=== PATIENT | male | born 1950 | race Caucasian/White ===

== ENCOUNTER 2021-08-21 19:46 | Inpatient (IN) | payer OTHER, MEDICARE ==
[~2021-08-21] VITALS: Ht 160 cm; Wt 70.3 kg
--- NOTE | ~2021-08-21 | OP ---
[address] [address] OPERATIVE REPORT Name: FRANCISCO MONTILLA Room: [address] IN .R.#: [id number] Admission: 08/21/21 Attend Phys: Jamal Sevilla DO Discharge: Date of : 54 Report #: [id number] THIS REPORT FOR: cc: Brandon Kee MD, Rene P. MD Kramer, Adam P. DO ~ cc: Brandon Kee MD, Patient's chart DATE OF SURGERY: 08/22/2021 REFERRING PHYSICIAN: Brandon Kee MD. PREOPERATIVE DIAGNOSIS: Incarcerated ventral hernia. POSTOPERATIVE DIAGNOSES: Incarcerated ventral hernia plus intra-abdominal adhesions. PROCEDURE: Exploratory laparotomy with lysis of adhesions, repair of incarcerated ventral hernia with 11.4 x 11.[address] mesh. SURGEON: Jamal Sevilla DO. EMBOSSING TOOLSETTER: Butch Prieto DO, PGY-1, resident. SECOND FLORAL CLERK: Student, Dr. Les Puentes MS4. THIRD FLORAL CLERK: Student, Dr. Monet Sotelo MS3. ANESTHESIA: General endotracheal. ESTIMATED BLOOD LOSS: Less than 100 mL. COMPLICATIONS: None. DESCRIPTION OF PROCEDURE: After obtaining proper consents and discussing risks and complications with the patient, he was taken to the operating room, laid in the supine position and administered general endotracheal anesthetic. He was then prepped and draped in the usual sterile fashion. A timeout was performed. We confirmed the appropriate patient and procedure. Preoperative antibiotics had been given. SCDs were in place. We then made a small midline incision around the palpable hernia. This was carried cautiously into the subcutaneous tissue using electrocautery as well as blunt dissection with Metzenbaum scissors. Immediately when we encountered the hernia sac, there was noted to be inflammatory fluid around it. I was easily able to dissect around the hernia sac with my hand. There was a small amount of bleeding, but most of this area was very easily freed up because of the inflammation [place] [address] OPERATIVE REPORT Name: FRANCISCO MONTILLA Room: [address] IN .R.#: [id number] Admission: 08/21/21 Attend Phys: Jamal Sevilla DO Discharge: Date of : 54 Report #: [id number] hernia sac was identified, we then grasped and elevated a portion of the sac with hemostats. The hernia sac was then opened using Metzenbaum scissors cautiously. There was a large amount of fluid that came out of the wound. At this time, there was clear fluid. We did immediately identify some small bowel underneath this. I then placed my finger to protect the bowel and opened the hernia sac further all the way down to the hernia defect. The hernia defect was quite small and could not get my finger through this; however, I was able to get a portion of my finger underneath the hernia sac to open it and make a relaxing incision in the fascia. I then extended this fascial opening for the entire length of our incision. I was then able to bring up the small bowel, which was adhesed to the peritoneum. We did grasp and elevate the hernia defect and the fascia and peritoneum and then dissected the small bowel away from this. Once the bowel was free of the abdominal wall, I was then able to bring more of the bowel up into the view and then identified that there were numerous adhesions of the small bowel. I spent approximately an hour dissecting the small bowel adhesions using blunt dissection with my finger as well as blunt and sharp dissection with Metzenbaum scissors. Once the entire small bowel was freed, I placed it back into the peritoneal cavity. We then measured the entire length of the opening. We did identify some other small hernias related to the patient's previous midline incision. The entire length was approximately 6 cm including all 3 of the hernias, which we could identify, so I elected to use an 11.4 cm [address] traverse [address]rio ST mesh. This mesh was then inserted. It was sutured in place and 12 positions using a 0 Prolene suture in a U-fashion going down through the fascia into the mesh and back up through the fascia. Once this was all secured in place, I then tied all of the sutures. We then also ran a 0 Prolene suture over top of the mesh closing the fascia over top of this. We then placed a drain in the subcutaneous tissue. A 15-Turkmen Casey-Guzman drain, which was sutured in place using a 2-0 nylon suture. We then closed the subcutaneous tissues using 3-0 Vicryl suture and the skin was closed using irineo. Sponge, needle and instrument counts were all found to be correct at the end of the procedure. The patient tolerated the procedure well and was awakened in the operating room and transported to recovery room in stable condition. By: [id number] 1931Adam Erika Sevilla DO /dane
[~2021-08-21 19:46] MED LIST: BACTRIM DS TAB1 EAC1; PREDNISONE 10 M10 M1 PO
[2021-08-21 19:59] VITALS: BP 151/87
[2021-08-21 20:39] LABS: CALCIUM 8.7 mg/dL (8.5-10.1)
[2021-08-21 20:43] LABS: ALBUMIN 3.8 g/dL (3.4-5.0); MAGNESIUM 2.3 mg/dL (1.8-2.4); TOTAL BILIRUBIN 0.5 mg/dL (<0.1-1.0); TOTAL PROTEIN 7.4 g/dL (6.4-8.2)
[2021-08-21 20:45] LABS: ABSOLUTE EOSINOPHILS 0.2 thou/uL (0.0-0.7); ABSOLUTE LYMPHOCYTES 0.8 thou/uL (0.8-5.3); ABSOLUTE MONOCYTES 0.5 thou/uL (0.0-1.2); ABSOLUTE NEUTROPHILS 5.4 thou/uL (1.6-8.1); BASOPHILS 0.5 %; EOSINOPHILS 2.9 %; HEMATOCRIT 41.8 % (42.0-52.0); LYMPHOCYTES 11.6 %; MCH 32.7 pg (26.0-34.0); MCHC 33.4 g/dL (28.0-37.0); MCV 97.8 fL (80.0-100.0); MONOCYTES 7.8 %; MPV 7.8 fl. (7.2-11.1); NUCLEATED RBCS 0 /100WBC; PLATELET COUNT* 276 thou/uL (150-400); POLYS 77.2 %; RBC 4.28 mil/uL (4.50-6.00); RDW-CV 13.4 % (10.5-14.5)
[2021-08-21 23:07] LABS: URINE BILIRUBIN NEGATIVE (Negative); URINE BLOOD NEGATIVE (Negative); URINE CLARITY CLEAR; URINE COLOR YELLOW; URINE GLUCOSE-RANDOM NEGATIVE (Negative); URINE KETONES 2+ (Negative); URINE LEUKOCYTES-REFLEX NEGATIVE (Negative); URINE NITRITE-REFLEX NEGATIVE (Negative); URINE PROTEIN NEGATIVE (Negative); URINE UROBILINOGEN 0.2 E.U./dl (0.2-1.0)
[2021-08-22 00:27] VITALS: BP 131/79
[2021-08-22 00:30] VITALS: BP 100/60
[2021-08-22 07:13] LABS: ABSOLUTE EOSINOPHILS 0.2 thou/uL (0.0-0.7); ABSOLUTE LYMPHOCYTES 0.6 thou/uL (0.8-5.3); ABSOLUTE MONOCYTES 0.6 thou/uL (0.0-1.2); ABSOLUTE NEUTROPHILS 6.4 thou/uL (1.6-8.1); BASOPHILS 0.3 %; HEMATOCRIT 41.9 % (42.0-52.0); HEMOGLOBIN 14.1 gm/dL (14.0-18.0); LYMPHOCYTES 7.9 %; MCH 33.1 pg (26.0-34.0); MCHC 33.7 g/dL (28.0-37.0); MCV 98.2 fL (80.0-100.0); MONOCYTES 7.6 %; MPV 7.1 fl. (7.2-11.1); NUCLEATED RBCS 0 /100WBC; PLATELET COUNT* 273 thou/uL (150-400); POLYS 82.2 %; RBC 4.26 mil/uL (4.50-6.00); RDW-CV 13.8 % (10.5-14.5); WBC 7.8 thou/uL (4.0-11.0)
[2021-08-22 07:24] LABS: ALBUMIN 3.2 g/dL (3.4-5.0); CALCIUM 8.1 mg/dL (8.5-10.1); CREATININE 0.8 mg/dL (0.6-1.3); POTASSIUM 4.3 mmol/L (3.5-5.1); TOTAL BILIRUBIN 0.5 mg/dL (<0.1-1.0); TOTAL PROTEIN 6.7 g/dL (6.4-8.2)
[2021-08-22 08:10] VITALS: BP 133/73
[2021-08-23 00:25] VITALS: BP 114/65
[2021-08-23 07:22] LABS: ABSOLUTE LYMPHOCYTES 0.5 thou/uL (0.8-5.3); ABSOLUTE MONOCYTES 0.5 thou/uL (0.0-1.2); ABSOLUTE NEUTROPHILS 3.9 thou/uL (1.6-8.1); BASOPHILS 0.3 %; EOSINOPHILS 0.4 %; HEMATOCRIT 37.9 % (42.0-52.0); HEMOGLOBIN 12.5 gm/dL (14.0-18.0); LYMPHOCYTES 9.3 %; MCH 32.8 pg (26.0-34.0); MCHC 33.1 g/dL (28.0-37.0); MONOCYTES 10.3 %; MPV 7.6 fl. (7.2-11.1); NUCLEATED RBCS 0 /100WBC; PLATELET COUNT* 243 thou/uL (150-400); POLYS 79.7 %; RBC 3.83 mil/uL (4.50-6.00); RDW-CV 13.4 % (10.5-14.5); WBC 4.9 thou/uL (4.0-11.0)
[2021-08-23 07:39] LABS: CREATININE 0.8 mg/dL (0.6-1.3); MAGNESIUM 2.1 mg/dL (1.8-2.4); POTASSIUM 4.1 mmol/L (3.5-5.1)
[2021-08-23 08:00] VITALS: BP 123/71
--- NOTE | 2021-08-23 09:01 | EKG ---
[place] [address] ELECTROCARDIOGRAM REPORT Name: FRANCISCO MONTILLA Room: [address] ADM IN M.R.#: [id number] Admission: 08/21/21 Attend Phys: Jamal Sevilla DO Discharge: Date of : 54 Date of Service: 08/21/211953 Report #: [id number] THIS REPORT FOR: //name// [facility] ED Test Date: 2021-08-21 Test Time: 19:54:40 Pat Name: FRANCISCO MONTILLA Department: Room: [facility] Gender: M [place] Head: CÉSAR : 1950 Requested By: Nevaeh Guerrero Order Number: [id number] MD: Carlos Enrique Silva Measurements Intervals [place] Rate: 87 P: 80 PA: 163 QRS: -16 QRSD: 84 T: 61 QT: 375 QTc: 451 Interpretive Statements Sinus rhythm Borderline left axis deviation Borderline low voltage, extremity leads No previous ECG available for comparison Electronically Signed On 08-23-2021 9:00:47 CDT by Carlos Enrique Silva [email or web address] <ELECTRONICALLY SIGNED> By: Carlos Enrique Silva MD, FACC 08/23/2100 53 53 Carlos Enrique Silva MD, FACC /EPI
[2021-08-23 16:31] VITALS: BP 99/57
[2021-08-23 20:48] VITALS: BP 112/65
[2021-08-24 01:00] VITALS: BP 132/78
[2021-08-24 04:10] VITALS: BP 140/83
[2021-08-24 07:10] LABS: HEMATOCRIT 36.1 % (42.0-52.0); HEMOGLOBIN 12.2 gm/dL (14.0-18.0); MCH 32.9 pg (26.0-34.0); MCHC 33.8 g/dL (28.0-37.0); MCV 97.5 fL (80.0-100.0); MPV 7.6 fl. (7.2-11.1); RBC 3.71 mil/uL (4.50-6.00); RDW-CV 13.5 % (10.5-14.5); WBC 5.1 thou/uL (4.0-11.0)
[2021-08-24 07:26] LABS: CALCIUM 8.2 mg/dL (8.5-10.1); CREATININE 0.9 mg/dL (0.6-1.3); POTASSIUM 3.5 mmol/L (3.5-5.1)
[2021-08-24 08:30] VITALS: BP 128/72
[2021-08-24 15:59] VITALS: BP 110/72
[2021-08-24 20:30] VITALS: BP 146/74
[2021-08-25 04:20] LABS: ABSOLUTE EOSINOPHILS 0.2 thou/uL (0.0-0.7); ABSOLUTE LYMPHOCYTES 0.9 thou/uL (0.8-5.3); ABSOLUTE MONOCYTES 0.6 thou/uL (0.0-1.2); BASOPHILS 0.3 %; HEMATOCRIT 32.6 % (42.0-52.0); HEMOGLOBIN 11.1 gm/dL (14.0-18.0); LYMPHOCYTES 15.3 %; MCH 33.2 pg (26.0-34.0); MCHC 34.1 g/dL (28.0-37.0); MCV 97.3 fL (80.0-100.0); MONOCYTES 10.3 %; MPV 7.2 fl. (7.2-11.1); NUCLEATED RBCS 0 /100WBC; PLATELET COUNT* 241 thou/uL (150-400); POLYS 71.1 %; RBC 3.35 mil/uL (4.50-6.00); RDW-CV 13.2 % (10.5-14.5); WBC 5.6 thou/uL (4.0-11.0)
[2021-08-25 04:43] LABS: ALBUMIN 2.3 g/dL (3.4-5.0); CALCIUM 8.1 mg/dL (8.5-10.1); CREATININE 0.7 mg/dL (0.6-1.3); POTASSIUM 3.6 mmol/L (3.5-5.1); TOTAL BILIRUBIN 0.4 mg/dL (<0.1-1.0); TOTAL PROTEIN 6.1 g/dL (6.4-8.2)
[2021-08-25 08:00] VITALS: BP 142/82
[2021-08-25 15:13] VITALS: BP 142/93
[2021-08-25 20:30] VITALS: BP 138/78
[2021-08-26 06:56] LABS: HEMATOCRIT 36.4 % (42.0-52.0); HEMOGLOBIN 12.4 gm/dL (14.0-18.0); MCH 32.8 pg (26.0-34.0); MCV 96.4 fL (80.0-100.0); MPV 7.1 fl. (7.2-11.1); RBC 3.77 mil/uL (4.50-6.00); RDW-CV 13.3 % (10.5-14.5); WBC 5.3 thou/uL (4.0-11.0)
[2021-08-26 07:08] LABS: CALCIUM 8.4 mg/dL (8.5-10.1); CREATININE 0.7 mg/dL (0.6-1.3); POTASSIUM 3.5 mmol/L (3.5-5.1)
[2021-08-26] MEDS ORDERED: OXYCODONE HCL 55 MG PO (12:35)
[2021-08-26 15:52] VITALS: BP 145/87
--- NOTE | 2021-08-29 10:07 | PATH ---
[address] [address] PATHOLOGY RPT PROCEDURE Name: FRANCISCO MONTILLA Room: [address] IN M.R.#: [id number] Admission: 08/21/21 Date of : 54 Discharge: 08/26/21 Report #: [id number] Path Case #: [id number] [facility] Accession Number: [id number] . 01 Material submitted: . abdomen - HERNIA SAC . 01 Clinical history: . HERNIA REPAIR, VENTRAL . 02 Diagnosis: Hernia sac: - Benign mesothelial-lined fibromembranous/fibrofatty tissue with mild chronic inflammation. (EMILY/db; 08/24/2021) . This case was prepared by Dr. Jarrett Willis and electronically signed and released by Dr. Kalpana Rosenthal. [facility] 08/26/2021 1249 Local . 02 Electronically signed: . Kalpana Rosenthal MD, Pathologist NPI- [id number] . 01 Gross description: . Fixative: Formalin Labeled: Hernia sac Specimen received: Single segment of purple-robison to bright yellow, fibro-membranous to fibroadipose tissue Dimensions: 8.1 x 5.8 x 1.4 cm Abnormalities: None identified Submitted representatively in cassette A1. ([facility]; 08/23/2021) NRI/NRI 08/24/2021 1524 Local . 02 Pathologist provided ICD-10: K43.9 . 02 CPT . 351382 Specimen Comment: A courtesy copy of this report has been sent to [phone], [phone] Specimen Comment: [phone] Specimen Comment: Report sent to AND DR CHAN Specimen Comment: A duplicate report has been generated due to demographic updates. Performed at: [address] [place] [address] PATHOLOGY RPT PROCEDURE Name: FRANCISCO MONTILLA Room: [address]#: [id number] Admission: 08/21/21 Date of : 54 Discharge: 08/26/21 Report #: [id number] Path Case #: [id number] [address] [id number] MD Duglas Villeda MD Phone: [phone] Performed at: [address] [facility] [address] [id number] MD Terrance Pearce MD Phone: [phone]
== END 2021-08-26 17:50 | disposition home or self-care (01) | DRG 337 ==
LOC: M.ERS 19:46 → M.3W 22:43 → M.TBA-ER 22:43 → M.3W 08-22 00:21
PROVIDERS: Emergency Medicine; Surgery; ADMIT Surgery; ATTEND Surgery
PROC: 0DNW0ZZ Release Peritoneum, Open Approach (ICD-10-PCS; principal; 2021-08-22)
PROC: 0WUF0JZ Supplement Abdominal Wall with Synthetic Substitute, Open Approach (ICD-10-PCS; principal; 2021-08-22)
DX: K43.6 Other and unspecified ventral hernia with obstruction, without gangrene (principal); K66.0 Peritoneal adhesions (postprocedural) (postinfection); Z20.822 Contact with and (suspected) exposure to COVID-19; Z88.2 Allergy status to sulfonamides